=== PATIENT | male | born 1950 | race Caucasian/White ===

== ENCOUNTER → 2021-08-07 13:30 | Outpatient (BNVA) | payer MEDICARE, SELFPAY | PROVIDERS: PCP Nurse Practitioner Family; Visit Provider Urology | DX: N40.0 Benign prostatic hyperplasia without lower urinary tract symptoms (principal); R31.29 Other microscopic hematuria | CPT/HCPCS: 81003 ==

== ENCOUNTER 2024-10-20 16:48 | Emergency (ER) | payer OTHER, SELFPAY ==
[2024-10-20] VITALS (12 sets, daily range): BP systolic 138–189; BP diastolic 62–84; PULSE 64–96; RESP 15–31; TEMP 36.6; O2SAT 95–98; BMI 32.8
--- NOTE | 2024-10-20 17:08 | ECG_ITS ---
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 Measurements Intervals [place] Rate: 66 P: 63 [place]: 183 QRS: 55 QRSD: 85 T: 72 QT: 349 QTc: 368 Interpretive Statements SINUS RHYTHM No previous ECG available for comparison Electronically Signed On 10-22-2024 22:00:13 CASCADE OPERATOR by Jewel Otoole M.D. [id number]
--- NOTE | 2024-10-20 17:36 | ED_ITS ---
HPI - Recheck/Abnormal Lab/Rx 2 General: Chief Complaint: Recheck/Abnormal Lab/Rx Stated Complaint: [facility] sent over for kidney failure Time Seen by Provider: 10/20/24 17:08 History of Present Illness: 74-year-old male with a history of hyper tension, diabetes and hyperlipidemia who presents to the emergency room from the [facility] with concern for acute renal failure and hyperkalemia. He says he has been relatively asymptomatic other than some mild generalized weakness over the last few weeks. No fevers. No dysuria. He does report decreased urine output. No lower extremity swelling except maybe some mild trace tibial edema. No fevers. No cough. No shortness of breath. No chest pain. No abdominal pain. No nausea or vomiting. Related Data Home Medications Medication Instructions Recorded Confirmed atorvastatin 20 mg tablet 20 mg PO DAILY 08/07/21 08/07/21 glipizide 5 mg tablet 5 mg PO DAILY 08/07/21 08/07/21 lisinopril 20 mg tablet 20 mg PO DAILY 08/07/21 08/07/21 metformin 1,000 mg tablet 500 mg PO BID 08/07/21 08/07/21 Allergies Allergy/AdvReac Type Severity Reaction Status Date / Time Penicillins Allergy Unknown Verified 10/20/24 18:39 Review of Systems 2 Narrative: Constitutional symptoms: Negative except as documented in HPI. Skin symptoms: Negative except as documented in HPI. Eye symptoms: Negative except as documented in HPI. ENMT symptoms: Negative except as documented in HPI. Respiratory symptoms: Negative except as documented in HPI. Cardiovascular symptoms: Negative except as documented in HPI. Gastrointestinal symptoms: Negative except as documented in HPI. Genitourinary symptoms: Negative except as documented in HPI. Musculoskeletal symptoms: Negative except as documented in HPI. Neurologic symptoms: Negative except as documented in HPI. Psychiatric symptoms: Negative except as documented in HPI. Endocrine symptoms: Negative except as documented in HPI. PFSH ED 2 PFSH: Medical History BPH (benign prostatic hyperplasia) Microscopic hematuria Family History Mother Healthy adult Father , AT AGE 90 Unknown cause of injury Social History Smoking and tobacco/nicotine status: never used tobacco/nicotine Alcohol intake: never Substance/Drug Use: never Marital status: Current occupational status: employed Physical Exam 2 Narrative: EXAM NARRATIVE: General: Alert, no acute distress. Skin: Warm, dry. Head: Normocephalic, atraumatic. Neck: Supple, trachea midline. Eye: Extraocular movements are intact. Ears, nose, mouth and throat: mucosa moist. Cardiovascular: Regular, Normal peripheral perfusion. Respiratory: Lungs are clear to auscultation, respirations are non-labored, breath sounds are equal, Symmetrical chest wall expansion. Gastrointestinal: Soft, Nontender, Non distended Musculoskeletal: Normal ROM, no deformity. Neurological: Alert and oriented, No focal neurological deficit observed. Psychiatric: Cooperative, appropriate mood & affect. Course 2 Vital Signs: Vital signs: Vital Signs Temperature 97.8 F 10/20/24 16:59 Pulse Rate 64 10/20/24 18:20 Respiratory Rate 21 H 10/20/24 18:20 Blood Pressure 139/64 10/20/24 18:20 Pulse Oximetry 98 10/20/24 18:20 Oxygen Delivery Me thod Room Air 10/20/24 18:20 MDM - Recheck/Abnormal Lab/Rx Medical Decision Making Medical decision making: Differential diagnosis including but not limited to and based on the above HPI, review of systems and physical exam: Report of renal failure so repeating lab work. Also adding a Phos and mag. Urinalysis. Check for hyperkalemia. An EKG to look for EKG changes secondary to hyperkalemia. Orders placed to evaluate differential diagnosis based on the above differential, HPI and physical exam EKG: Time 1716. Rate 66. Normal sinus rhythm, No ST-T changes, no ectopy, normal WA & QRS intervals, This was reviewed and interpreted by myself the ER physician at 1720. Lab Review: Laboratory results were reviewed and interpreted by myself the emergency room physician. Patient has some mild leukocytosis with a white count of 15,000. He has renal failure with a BUN and creatinine of 51 and 2.8. Urinalysis shows greater than 100 whites with some mild hematuria and leukocyte esterase positive. Nitrite negative. I reviewed the patient's medical record. Reexamination: Patient remained stable. No increased work of breathing. No altered mental status. No focal motor deficits. CT of the abdomen pelvis without contrast: Patient has a large calcification in the proximal ureter and pelvis of the left kidney. This kidney appears atrophic and this is likely chronic. He has a 10 mm stone in the proximal right ureter with hydronephrosis. Findings also concerning for infection. See official read below. This was reviewed and interpreted by myself the emergency room physician. I also reviewed the radiology report. Consultation: I spoke with Dr. Benjamín Campbell who is a urologist at [facility]. He agrees with transfer for stent placement and continued antibiotics and fluids. Consultation: I spoke with Dr. Mejia who is a hospitalist at [facility] who accepts the patient to his service. Assessment and plan: Renal failure Urinary tract infection Ureterolithiasis Bilateral obstructive uropathy Mild hyperkalemia -I discussed the patient with the hospitalist on-call who is admitting the patient. - Discussed findings and plan with patient. Answered any questions. - All laboratory values were reviewed and interpreted personally by myself, the ER physician - All imaging was reviewed and interpreted personally by myself, the ER physician. - Evaluation and treatment of this problem were appropriate in the emergency setting Lab Data 10/20/24 17:22 10/20/24 17:22 Radiology Impressions Abdomen/Pelvis CT 10/20/24 18:23 IMPRESSION: 1. Obstructing 0.9 cm calculus in the proximal left ureter with moderate upstream hydroureteronephrosis. 2. Layering coarse calcifications in the right renal pelvis with additional calculi in central calices along with right-sided emphysematous pyelitis. Correlate for recent instrumentation and consider short interval follow-up imaging, particularly if patient develops worsening right-sided flank pain, to evaluate for developing emphysematous pyelonephritis. 3. Fat stranding in the right renal sinus is compatible with inflammation. Superimposed infection not excluded. 4. Mild bilateral perinephric fat stranding is nonspecific. 5. Additional findings as above. COMMENTS: Consistent with the [place] [employer]'s Incidental Findings Committee white paper (J Am Luci Radiol 2017): For any incidental adrenal lesion greater than or equal to 1 cm but less than or equal to 4 cm classified in this report as benign, likely benign, or containing fat (including classification as an adenoma or myelolipoma), no follow-up imaging is recommended per consensus recommendations based on imaging criteria. Further lab evaluation could be pursued if warranted based on clinical findings. Laboratory Results WBC 14.62 10^3/uL (3.29-11.43) H 10/20/24 17:22 RBC 4.52 10^6/uL (3.85-5.65) 10/20/24 17:22 Hgb 12.50 g/dL (11.27-16.99) 10/20/24 17:22 Hct 40.4 % (37-53) 10/20/24 17:22 MCV 89.4 fl (82-101) 10/20/24 17:22 MCH 27.7 pg (27-33) 10/20/24 17:22 MCHC 30.9 g/dL (30-55) 10/20/24 17:22 RDW 15.1 % (12.1-15.1) 10/20/24 17:22 Plt Count 380 10^3/cmm (157-399) 10/20/24 17:22 MPV 9.3 fL (7.4-10.4) 10/20/24 17:22 Neut % (Auto) 60.1 % 10/20/24 17:22 Lymph % (Auto) 29.3 % 10/20/24 17:22 [place] % (Auto) 6.0 % 10/20/24 17:22 Eos % (Auto) 3.8 % 10/20/24 17:22 Baso % (Auto) 0.5 % 10/20/24 17:22 Neut # (Auto) 8.78 10^3/uL (1.8-7.7) H 10/20/24 17:22 Lymph # (Auto) 4.3 10^3/uL (0.8-4.8) 10/20/24 17:22 [place] # (Auto) 0.9 10^3/uL (0.2-0.9) 10/20/24 17:22 Eos # (Auto) 0.6 10^3/uL (0.0-0.8) 10/20/24 17:22 Baso # (Auto) 0.1 10^3/uL (0.0-0.1) 10/20/24 17:22 Nucleated RBC % (auto) 0 % 10/20/24 17:22 Nucleated RBCs # 0.0 /100WBC 10/20/24 17:22 Sodium 137 mmol/L (136-145) 10/20/24 17:22 Potassium 6.0 mmol/L (3.5-5.1) H 10/20/24 17:22 Chloride 107 mmol/L (98-107) 10/20/24 17:22 Carbon Dioxide 19 mmol/L (22-29) L 10/20/24 17:22 Anion Gap 17.0 (5-19) 10/20/24 17:22 BUN 51 mg/dL (8-23) H 10/20/24 17:22 Creatinine 2.8 mg/dL (0.7-1.2) H 10/20/24 17:22 GFR Calculation Not Reportable 10/20/24 17:22 Glucose 124 mg/dL (65-115) H 10/20/24 17:22 Calculated Osmolality 299 mOsm/kg (285-295) H 10/20/24 17:22 Lactic Acid 1.2 mmol/L (0.5-2.2) 10/20/24 17:22 Calcium 9.2 mg/dL (8.5-10.5) 10/20/24 17:22 Phosphorus 4.1 mg/dL (2.5-4.5) 10/20/24 17:22 Magnesium 1.9 mg/dL (1.7-2.3) 10/20/24 17:22 Total Bilirubin 0.2 mg/dL (0.15-1.2) 10/20/24 17:22 AST 15 U/L (0-40) 10/20/24 17:22 ALT 19 U/L (0-41) 10/20/24 17:22 Alkaline Phosphatase 173 U/L (40-130) H 10/20/24 17:22 Troponin T Baseline 23 ng/L (0-15) H 10/20/24 17:22 Troponin T 120 Minute 19.31 ng/L (0-15) H 10/20/24 19:23 Delta Troponin T -3.69 ABS# (0-10) L 10/20/24 19:23 Total Protein 8.1 g/dL (6.6-8.7) 10/20/24 17:22 Albumin 3.7 g/dL (3.5-5.2) 10/20/24 17:22 Globulin 4.4 g/dL (1.3-4.6) 10/20/24 17:22 Urine Color Yellow (Yellow) 10/20/24 17:37 Urine Appearance Turbid (CLEAR) A 10/20/24 17:37 Urine pH 5.0 (5-7) 10/20/24 17:37 Ur Specific [place] 1.016 (1.005-1.030) 10/20/24 17:37 Urine Protein 2+ (Negative) A 10/20/24 17:37 Urine Glucose (UA) Negative (Normal) 10/20/24 17:37 Urine Ketones Negative (Negative) 10/20/24 17:37 Urine Blood 3+ (Negative) A 10/20/24 17:37 Urine Nitrate Negative (Negative) 10/20/24 17:37 Urine Bilirubin Negative (Negative) 10/20/24 17:37 Urine Urobilinogen 0.2 mg/dL (Negative) 10/20/24 17:37 Ur Leukocyte Esterase 3+ (Negative) A 10/20/24 17:37 Urine RBC 21-50 /hpf (0-2) H 10/20/24 17:37 Urine WBC >100 /hpf (0-5) H 10/20/24 17:37 Ur Squamous Epith Cells 0-5 /hpf (0-5) 10/20/24 17:37 Amorphous Sediment Not Reportable 10/20/24 17:37 Urine Bacteria 4+ /hpf (NONE) H 10/20/24 17:37 Hyaline Casts 14.87 /lpf 10/20/24 17:37 All radiology interpretation(s) finalized by discharge Discharge Plan Discharge Patient Disposition: Xfer Short-Term Hosp Clinical Impression: Acute renal failure, Obstructive uropathy, Ureterolithiasis, Urinary tract infection Condition: Stable Referrals: Janis Hernández, SENIOR MEDIA DIRECTOR-C [Primary Care Provider] - Coding Level of Care Code ED Electrician Outside for Adrianna Golden
[2024-10-20 17:41] LABS: Basophils # 0.1 10^3/uL (0.0-0.1); Basophils % 0.5 %; Eosinophils # 0.6 10^3/uL (0.0-0.8); Eosinophils % 3.8 %; Hematocrit 40.4 % (37-53); Lymphocytes # 4.3 10^3/uL (0.8-4.8); Lymphocytes % 29.3 %; Mean Corpuscular HGB Conc 30.9 g/dL (30-55); Mean Corpuscular Hemoglobin 27.7 pg (27-33); Mean Corpuscular Volume 89.4 fl (82-101); Mean Platelet Volume 9.3 fL (7.4-10.4); Monocytes # 0.9 10^3/uL (0.2-0.9); Neutrophils # 8.78 10^3/uL (1.8-7.7); Neutrophils % 60.1 %; Nucleated Red Blood Cells % 0 %; Platelet Count 380 10^3/cmm (157-399); Red Blood Count 4.52 10^6/uL (3.85-5.65); Red Cell Distribution Width 15.1 % (12.1-15.1); White Blood Count 14.62 10^3/uL (3.29-11.43)
[2024-10-20 17:53] LABS: Bilirubin Urine Negative (Negative); Blood Urine 3+ (Negative); Glucose Urine UA Negative (Normal); Ketones Urine Negative (Negative); Leukocyte Esterase Urine 3+ (Negative); Nitrate Urine Negative (Negative); Protein Urine 2+ (Negative); Specific Gravity, Urine 1.016 (1.005-1.030); Urine Appearance Turbid (CLEAR); Urine Color Yellow (Yellow); Urobilinogen Urine 0.2 mg/dL (Negative)
[2024-10-20 17:58] LABS: Bacteria Urine 4+ /hpf; Hyaline Casts Urine 14.87 /lpf; RBC Urine 21-50 /hpf (0-2); Squamous Epithelial Cell Urine 0-5 /hpf (0-5); WBC Urine >100 /hpf (0-5)
[2024-10-20 18:16] LABS: Troponin(5th) Baseline 23 ng/L (0-15)
[2024-10-20 18:18] LABS: Alanine Aminotransferase 19 U/L (0-41); Albumin Level 3.7 g/dL (3.5-5.2); Alkaline Phosphatase 173 U/L (40-130); Aspartate Amino Transferase 15 U/L (0-40); Blood Urea Nitrogen 51 mg/dL (8-23); Calcium 9.2 mg/dL (8.5-10.5); Carbon Dioxide 19 mmol/L (22-29); Chloride 107 mmol/L (98-107); Creatinine Clr Calc Pharmacy 27.9417; Globulin 4.4 g/dL (1.3-4.6); Glucose 124 mg/dL (65-115); Magnesium 1.9 mg/dL (1.7-2.3); Osmolality Calculated 299 mOsm/kg (285-295); Phosphorus 4.1 mg/dL (2.5-4.5); Sodium 137 mmol/L (136-145); Total Bilirubin 0.2 mg/dL (0.15-1.2); Total Protein 8.1 g/dL (6.6-8.7)
[2024-10-20 18:19] LABS: Lactic Sepsis W/Reflex 1.2 mmol/L (0.5-2.2)
--- NOTE | 2024-10-20 18:23 | CTR_ITS ---
PROCEDURE INFORMATION: Exam: CT Abdomen And Pelvis Without Contrast Exam date and time: 10/20/2024 7:56 PM Age: 74 years old Clinical indication: Abdominal pain; Additional info: Flank pain TECHNIQUE: Imaging protocol: Computed tomography of the abdomen and pelvis without contrast. Radiation optimization: All CT scans at this facility use at least one of these dose optimization techniques: automated exposure control; mA and/or kV adjustment per patient size (includes targeted exams where dose is matched to clinical indication); or iterative reconstruction. COMPARISON: US renal BI with PV bladder 05/21/2021 8:51 AM RADIATION DOSE METRICS: Total DLP (mGy-cm): 990.97 FINDINGS: Lungs: Bandlike consolidation medially in the right lower lobe. Liver: Normal. No mass. Gallbladder and biliary ducts: Normal. No calcified stones. No ductal dilation. Pancreas: 6 mm cystic focus in the pancreatic head on series 4, image 23. Spleen: Normal. No splenomegaly. Adrenal glands: 1.6 cm fat density lesion in the right adrenal gland compatible with adrenal myelolipoma. Kidneys and ureters: Multiple calcifications in central right renal calices measuring up to 1.4 cm. Coarse, layering calcification within the right renal pelvis along with several air locules in the right renal collecting system/pelvis and proximal ureter. Ill-defined right renal sinus fat stranding. Mixed. Several calculi are seen in the left kidney measuring up to 0.9 cm. There is a 0.9 cm obstructing calculus in the proximal left ureter just beyond the ureteropelvic junction with moderate upstream hydroureteronephrosis. Bilateral perinephric fat stranding is nonspecific. Mixed Stomach and bowel: Colonic diverticulosis without evidence of acute diverticulitis. Small to moderate scattered colonic stool. No evidence of bowel obstruction. The stomach is moderately distended with fluid and air. Appendix: No evidence of appendicitis. Intraperitoneal space: Unremarkable. No free air. No significant fluid collection. Vasculature: Mild atherosclerotic aortic calcifications. No aortic aneurysm. Lymph nodes: Unremarkable. No enlarged lymph nodes. Urinary bladder: Air within the urinary bladder may be from recent instrumentation. Reproductive: The prostate is moderately enlarged. Symmetric seminal vesicles. Bones/joints: Multilevel degenerative changes of the visualized spine. No acute or aggressive osseous lesion. Soft tissues: Bilateral fat containing inguinal hernias. CT/CT abdomen pelvis wo con [id number] IMPRESSION: 1. Obstructing 0.9 cm calculus in the proximal left ureter with moderate upstream hydroureteronephrosis. 2. Layering coarse calcifications in the right renal pelvis with additional calculi in central calices along with right-sided emphysematous pyelitis. Correlate for recent instrumentation and consider short interval follow-up imaging, particularly if patient develops worsening right-sided flank pain, to evaluate for developing emphysematous pyelonephritis. 3. Fat stranding in the right renal sinus is compatible with inflammation. Superimposed infection not excluded. 4. Mild bilateral perinephric fat stranding is nonspecific. 5. Additional findings as above. COMMENTS: Consistent with the [place] [employer]'s Incidental Findings Committee white paper (J Am Luci Radiol 2017): For any incidental adrenal lesion greater than or equal to 1 cm but less than or equal to 4 cm classified in this report as benign, likely benign, or containing fat (including classification as an adenoma or myelolipoma), no follow-up imaging is recommended per consensus recommendations based on imaging criteria. Further lab evaluation could be pursued if warranted based on clinical findings.
[2024-10-20 18:26] LABS: Add Urine Culture? Yes
[2024-10-20] MEDS: sodium chloride 0.9% 1,000 ML 999 ML IV (18:37)
[2024-10-20] MEDS: cefepime 2,000 mg SDV 2000 MG IVP (18:40)
[2024-10-20 19:58] LABS: Troponin 5 2HR 19.31 ng/L (0-15)
[2024-10-20 19:59] LABS: Troponin 5 2HR Delta -3.69 ABS# (0-10)
--- NOTE | 2024-10-20 21:56 | ECG_ITS ---
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 Measurements Intervals [place] Rate: 72 P: 73 PA: 181 QRS: 44 QRSD: 90 T: 63 QT: 341 QTc: 374 Interpretive Statements SINUS RHYTHM Compared to ECG 10/20/2024 17:16:47 No significant changes Electronically Signed On 10-22-2024 22:14:32 ALGEBRA TUTOR by Jewel Otoole M.D. [id number]
[2024-10-20 23:28] LABS: Troponin 5 6HR 19.36 ng/L (0-15)
[2024-10-20 23:29] LABS: Troponin 5 6HR Delta -3.64 ng/L (0-12)
== END 2024-10-20 23:51 | disposition short-term general hospital (02) ==
PROVIDERS: Emergency Provider Emergency Medicine; PCP Nurse Practitioner Family
DX: N17.9 Acute kidney failure, unspecified (principal); E11.9 Type 2 diabetes mellitus without complications; I10 Essential (primary) hypertension; E78.5 Hyperlipidemia, unspecified; N13.9 Obstructive and reflux uropathy, unspecified; N20.1 Calculus of ureter; N39.0 Urinary tract infection, site not specified
CPT/HCPCS: 36415; 74176; 80053; 81001; 83605; 83735; 84100; 84484; 85025; 87077; 87086; 87186; 93005; 96374; 99285; J0692; J7030

== ENCOUNTER 2025-01-12 12:48 | Outpatient (CLI) | payer MEDICARE, SELFPAY ==
[2025-01-12 13:04] LABS: Basophils # 0.1 10^3/uL (0.0-0.1); Basophils % 0.8 %; Eosinophils % 8.7 %; Hematocrit 32.8 % (37-53); Lymphocytes # 4.4 10^3/uL (0.8-4.8); Lymphocytes % 38.8 %; Mean Corpuscular Hemoglobin 27.9 pg (27-33); Mean Corpuscular Volume 87.2 fl (82-101); Mean Platelet Volume 9.8 fL (7.4-10.4); Monocytes # 0.7 10^3/uL (0.2-0.9); Monocytes % 5.8 %; Neutrophils # 5.12 10^3/uL (1.8-7.7); Neutrophils % 45.5 %; Nucleated Red Blood Cells % 0 %; Platelet Count 370 10^3/cmm (157-399); Red Blood Count 3.76 10^6/uL (3.85-5.65); Red Cell Distribution Width 15.3 % (12.1-15.1); White Blood Count 11.25 10^3/uL (3.29-11.43)
[2025-01-12 13:34] LABS: Alanine Aminotransferase 35 U/L (0-41); Albumin Level 3.4 g/dL (3.5-5.2); Alkaline Phosphatase 129 U/L (40-130); Aspartate Amino Transferase 31 U/L (0-40); Blood Urea Nitrogen 35 mg/dL (8-23); Calcium 9.1 mg/dL (8.5-10.5); Carbon Dioxide 24 mmol/L (22-29); Chloride 108 mmol/L (98-107); Globulin 3.6 g/dL (1.3-4.6); Glucose 79 mg/dL (65-115); Osmolality Calculated 301 mOsm/kg (285-295); Sodium 142 mmol/L (136-145); Total Bilirubin 0.2 mg/dL (0.15-1.2)
== END 2025-01-12 12:49 | disposition home or self-care (01) ==
PROVIDERS: PCP Nurse Practitioner Family; Visit Provider Urology
DX: Z79.2 Long term (current) use of antibiotics (principal)
CPT/HCPCS: 80053; 85025

== ENCOUNTER 2025-03-09 15:40 | Emergency (ER) | payer OTHER, MEDICARE, SELFPAY ==
[2025-03-09] VITALS (7 sets, daily range): BP systolic 137–154; BP diastolic 71–83; PULSE 60–90; RESP 16–18; TEMP 36.5; O2SAT 97–99; BMI 30.9
--- NOTE | 2025-03-09 15:50 | ECG_ITS ---
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 Measurements Intervals [place] Rate: 71 P: 40 [place]: 176 QRS: 38 QRSD: 80 T: 60 QT: 357 QTc: 390 Interpretive Statements SINUS RHYTHM Compared to ECG 10/20/2024 21:56:44 No significant changes Electronically Signed On 03-14-2025 10:15:29 CDT by Jewel Otoole M.D. [email or web address] [id number]
--- NOTE | 2025-03-09 16:26 | W.ED.RECABL ---
Documented by User: Warren Flood DO 03/10/25 13:47 HPI - Recheck/Abnormal Lab/Rx General: Chief Complaint: Recheck/Abnormal Lab/Rx Stated Complaint: abn labs Time Seen by Provider: 03/09/25 16:12 History of Present Illness: 74-year-old male presents to the emergency room with complaints of elevated creatinine potassium on lab work that was drawn 2 days ago. Patient has stents in place and is about to have lithotripsy he was having preoperative labs evidently there were abnormal he was directed here by his stopper maker helper. He denies having any symptoms this time no fever sweats chills no muscle twitching or cramping no palpitations. Related Data Home Medications ?Medication ?Instructions ?Recorded ?Confirmed atorvastatin 20 mg tablet 20 mg PO DAILY 08/07/21 03/09/25 lisinopril 20 mg tablet 20 mg PO DAILY 08/07/21 03/09/25 ciprofloxacin HCl 500 mg tablet 500 mg PO BID 03/09/25 03/09/25 folic acid 1 mg tablet 1 mg PO DAILY 03/09/25 03/09/25 glipizide 10 mg tablet, extended 10 mg PO DAILY 03/09/25 03/09/25 release 24 hr metformin 500 mg tablet 500 mg PO BID 03/09/25 03/09/25 nitrofurantoin macrocrystal 100 mg 100 mg PO DAILY 03/09/25 03/09/25 capsule Allergies Allergy/AdvReac Type Severity Reaction Status Date / Time Penicillins Allergy Unknown Verified 03/09/25 15:57 Review of Systems Const: Denies: fever(s) or chills Card: Denies: chest pain Resp: Denies: dyspnea GI: Denies: abdominal pain : Denies: dysuria, urinary frequency or urinary urgency Musc: Denies: neck pain or back pain Skin/Breast: Denies: rash PFSH ED PFSH: Medical History Microscopic hematuria BPH (benign prostatic hyperplasia) Family History Mother Healthy adult Father , AT AGE 90 Unknown cause of injury Social History Smoking and tobacco/nicotine status: never used tobacco/nicotine Alcohol intake: never Substance/Drug Use: never Marital status: Current occupational status: employed Physical Exam Const: GENERAL APPEARANCE: cooperative ORIENTATION/CONSCIOUSNESS: Yes awake, Yes oriented to person, Yes oriented to place and Yes oriented to time HENMT: COMMON NORMALS: normocephalic, atraumatic and hearing grossly normal bilaterally HEAD & SCALP: normocephalic and atraumatic Resp: COMMON NORMALS: normal respiratory effort, No retractions, No use of accessory muscles and clear to auscultation bilaterally AUSCULTATION: clear to auscultation bilaterally Cardio: COMMON NORMALS: regular rate, regular rhythm and No murmurs present (Cardio) RATE: regular rate RHYTHM: regular rhythm GI: COMMON NORMALS: Soft to palpation and No hepatosplenomegaly present AUSCULTATION: Yes normoactive bowel sounds PALPATION: Yes Soft to palpation, No Tenderness to palpation present (GI), No Guarding due to palpation present (GI) and Yes No hepatosplenomegaly present Extremity: COMMON NORMALS: normal to inspection, capillary refill normal, no clubbing, cyanosis or edema, no calf tenderness and no pedal edema Neuro: SENSORIUM/ORIENTATION: Yes oriented to person, Yes oriented to place and Yes oriented to time Skin: COMMON NORMALS: no rashes or lesions noted GENERAL SKIN EXAM: no rashes or lesions noted Course Vital Signs: Vital signs: Vital Signs Temperature 97.7 F 03/09/25 15:42 Pulse Rate 72 03/09/25 21:06 Respiratory Rate 16 03/09/25 21:06 Blood Pressure 153/80 03/09/25 21:06 Pulse Oximetry 98 03/09/25 21:06 Oxygen Delivery [facility] Room Air 03/09/25 20:00 MDM - Recheck/Abnormal Lab/Rx Medical Decision Making Patient presents emergency room at the behest of his stopper maker helper for abnormal potassium and creatinine levels ordered on preop. He is not having any flank pain or discomfort. He does have a mild UTI. Hyperkalemia treatments initiated. CT renal scan pending for possible admission here. Discussed with Dr. Byers. Care signed out to Dr. Byers at change of shift. See final notes for diagnosis and disposition. Patient care transitioned to or at shift change awaiting CT scan. There was planned admission to the hospitalist service but CT scan shows possible migration of the left ureteral stent. Consultation: I spoke with Dr. Campbell who is the patient's urologist down at [place]. He recommends transfer to the hospitalist service for replacement of stents tomorrow. Planned lithotripsy on Friday. Patient is on antibiotics and follows with an ID doctor. He was given meropenem and Rocephin here in the emergency room. He has been given fluids as well. He is having no pain. No altered mental status. Vitals are good. Consultation: I spoke with Dr. Conde who is on-call for the hospitalist service at [place] and the patient will be transferred there. Assessment and plan: Acute on chronic renal insufficiency Ureteral stent malfunction Urinary tract infection -I discussed the patient with the accepting physician on-call. - Discussed findings and plan with patient. Answered any questions. - All laboratory values were reviewed and interpreted personally by myself, the ER physician - All imaging was reviewed and interpreted personally by myself, the ER physician. - Evaluation and treatment of this problem were appropriate in the emergency setting Medical Records I reviewed the patient's medical records. Lab Data I reviewed the patient's lab results. 03/09/25 16:24 03/09/25 16:24 Radiology Impressions Abdomen/Pelvis CT 03/09/25 17:55 IMPRESSION: 1. 1.9 cm low-density lesion in the posterior tail of the pancreas appears to have increased in size compared to prior study where it measured less than 1 cm. Recommend further evaluation with pancreatic protocol CT or MR. EUS/FNA is likely appropriate given apparent rapid rate of growth. 2. Apparent increased stone burden in the right kidney with mild increased right upper pole hydronephrosis. Right ureteral stent terminates in the right renal pelvis. 3. Left ureteral stent terminates in the proximal left ureter at the level of the 9 mm calcification. There is [id number] left proximal hydroureteronephrosis. 4. Other nonemergent findings above. Laboratory Results WBC 12.59 10^3/uL (3.29-11.43) H 03/09/25 16:24 RBC 3.90 10^6/uL (3.85-5.65) 03/09/25 16:24 Hgb 10.70 g/dL (11.27-16.99) L 03/09/25 16:24 Hct 34.9 % (37-53) L 03/09/25 16:24 MCV 89.5 fl (82-101) 03/09/25 16:24 MCH 27.4 pg (27-33) 03/09/25 16:24 MCHC 30.7 g/dL (30-55) 03/09/25 16:24 RDW 15.5 % (12.1-15.1) H 03/09/25 16:24 Plt Count 374 10^3/cmm (157-399) 03/09/25 16:24 MPV 9.2 fL (7.4-10.4) 03/09/25 16:24 Neut % (Auto) 58.8 % 03/09/25 16:24 Lymph % (Auto) 31.0 % 03/09/25 16:24 Osborne % (Auto) 5.2 % 03/09/25 16:24 Eos % (Auto) 4.0 % 03/09/25 16:24 Baso % (Auto) 0.7 % 03/09/25 16:24 Neut # (Auto) 7.40 10^3/uL (1.8-7.7) 03/09/25 16:24 Lymph # (Auto) 3.9 10^3/uL (0.8-4.8) 03/09/25 16:24 Osborne # (Auto) 0.7 10^3/uL (0.2-0.9) 03/09/25 16:24 Eos # (Auto) 0.5 10^3/uL (0.0-0.8) 03/09/25 16:24 Baso # (Auto) 0.1 10^3/uL (0.0-0.1) 03/09/25 16:24 Nucleated RBC % (auto) 0 % 03/09/25 16:24 Nucleated RBCs # 0.0 /100WBC 03/09/25 16:24 Sodium 136 mmol/L (136-145) 03/09/25 16:24 Potassium 5.8 mmol/L (3.5-5.1) H 03/09/25 16:24 Chloride 109 mmol/L (98-107) H 03/09/25 16:24 Carbon Dioxide 13 mmol/L (22-29) L 03/09/25 16:24 Anion Gap 19.8 (5-19) H 03/09/25 16:24 BUN 71 mg/dL (8-23) H 03/09/25 16:24 Creatinine 2.3 mg/dL (0.7-1.2) H 03/09/25 16:24 GFR Calculation Not Reportable 03/09/25 16:24 Glucose 104 mg/dL (65-115) 03/09/25 16:24 Calculated Osmolality 303 mOsm/kg (285-295) H 03/09/25 16:24 Calcium 8.4 mg/dL (8.5-10.5) L 03/09/25 16:24 Magnesium 1.5 mg/dL (1.7-2.3) L 03/09/25 16:24 Total Bilirubin 0.2 mg/dL (0.15-1.2) 03/09/25 16:24 AST 47 U/L (0-40) H 03/09/25 16:24 ALT 54 U/L (0-41) H 03/09/25 16:24 Alkaline Phosphatase 107 U/L (40-130) 03/09/25 16:24 Total Protein 7.8 g/dL (6.6-8.7) 03/09/25 16:24 Albumin 3.4 g/dL (3.5-5.2) L 03/09/25 16:24 Globulin 4.4 g/dL (1.3-4.6) 03/09/25 16:24 Urine Color Yellow (Yellow) 03/09/25 16:51 Urine Appearance Turbid (CLEAR) A 03/09/25 16:51 Urine pH 5.0 (5-7) 03/09/25 16:51 Ur Specific [place] 1.013 (1.005-1.030) 03/09/25 16:51 Urine Protein 2+ (Negative) A 03/09/25 16:51 Urine Glucose (UA) Negative (Normal) 03/09/25 16:51 Urine Ketones Negative (Negative) 03/09/25 16:51 Urine Blood 3+ (Negative) A 03/09/25 16:51 Urine Nitrate Negative (Negative) 03/09/25 16:51 Urine Bilirubin Negative (Negative) 03/09/25 16:51 Urine Urobilinogen 0.2 mg/dL (Negative) 03/09/25 16:51 Ur Leukocyte Esterase 2+ (Negative) A 03/09/25 16:51 Urine RBC 6-10 /hpf (0-2) 03/09/25 16:51 Urine WBC 21-50 /hpf (0-5) H 03/09/25 16:51 Ur Squamous Epith Cells 6-10 /hpf (0-5) 03/09/25 16:51 Amorphous Sediment Not Reportable 03/09/25 16:51 Urine Bacteria None seen /hpf (NONE) 03/09/25 16:51 Hyaline Casts 103.00 /lpf 03/09/25 16:51 Discharge Plan Discharge Patient Disposition: Xfer Short-Term Hosp Clinical Impression: Ureterolithiasis, Hydronephrosis, Migration of ureteral stent, Acute on chronic renal insufficiency, Urinary tract infection Condition: Stable Referrals: Janis Hernández FNP-C [Primary Care Provider, Nurse Practitioner] Print Language: Tajik Coding Level of Care Code ED Arterial Embalmer for Chg Fwd Documented by User: Cheryl Byers MD 03/09/25 20:12 HPI - Recheck/Abnormal Lab/Rx General: Chief Complaint: Recheck/Abnormal Lab/Rx Stated Complaint: abn labs Time Seen by Provider: 03/09/25 16:12 Related Data Home Medications ?Medication ?Instructions ?Recorded ?Confirmed atorvastatin 20 mg tablet 20 mg PO DAILY 08/07/21 03/09/25 lisinopril 20 mg tablet 20 mg PO DAILY 08/07/21 03/09/25 ciprofloxacin HCl 500 mg tablet 500 mg PO BID 03/09/25 03/09/25 folic acid 1 mg tablet 1 mg PO DAILY 03/09/25 03/09/25 glipizide 10 mg tablet, extended 10 mg PO DAILY 03/09/25 03/09/25 release 24 hr metformin 500 mg tablet 500 mg PO BID 03/09/25 03/09/25 nitrofurantoin macrocrystal 100 mg 100 mg PO DAILY 03/09/25 03/09/25 capsule Allergies Allergy/AdvReac Type Severity Reaction Status Date / Time Penicillins Allergy Unknown Verified 03/09/25 15:57 PFSH ED PFS: Medical History Microscopic hematuria BPH (benign prostatic hyperplasia) Family History Mother Healthy adult Father , AT AGE 90 Unknown cause of injury Social History Smoking and tobacco/nicotine status: never used tobacco/nicotine Alcohol intake: never Substance/Drug Use: never Marital status: Current occupational status: employed Course Vital Signs: Vital signs: Vital Signs Temperature 97.7 F 03/09/25 15:42 Pulse Rate 72 03/09/25 21:06 Respiratory Rate 16 03/09/25 21:06 Blood Pressure 153/80 03/09/25 21:06 Pulse Oximetry 98 03/09/25 21:06 Oxygen Delivery Ri [facility]od Room Air 03/09/25 20:00 MDM - Recheck/Abnormal Lab/Rx Medical Decision Making Patient care transitioned to or at shift change awaiting CT scan. There was planned admission to the hospitalist service but CT scan shows possible migration of the left ureteral stent. Consultation: I spoke with Dr. Campbell who is the patient's urologist down at [place]. He recommends transfer to the hospitalist service for replacement of stents tomorrow. Planned lithotripsy on Friday. Patient is on antibiotics and follows with an ID doctor. He was given meropenem and Rocephin here in the emergency room. He has been given fluids as well. He is having no pain. No altered mental status. Vitals are good. Consultation: I spoke with Dr. Conde who is on-call for the hospitalist service at [place] and the patient will be transferred there. Assessment and plan: Acute on chronic renal insufficiency Ureteral stent malfunction Urinary tract infection -I discussed the patient with the accepting physician on-call. - Discussed findings and plan with patient. Answered any questions. - All laboratory values were reviewed and interpreted personally by myself, the ER physician - All imaging was reviewed and interpreted personally by myself, the ER physician. - Evaluation and treatment of this problem were appropriate in the emergency setting Lab Data 03/09/25 16:24 04/30/25 16:24 Radiology Impressions Abdomen/Pelvis CT 03/09/25 17:55 IMPRESSION: 1. 1.9 cm low-density lesion in the posterior tail of the pancreas appears to have increased in size compared to prior study where it measured less than 1 cm. Recommend further evaluation with pancreatic protocol CT or MR. EUS/FNA is likely appropriate given apparent rapid rate of growth. 2. Apparent increased stone burden in the right kidney with mild increased right upper pole hydronephrosis. Right ureteral stent terminates in the right renal pelvis. 3. Left ureteral stent terminates in the proximal left ureter at the level of the 9 mm calcification. There is [id number] left proximal hydroureteronephrosis. 4. Other nonemergent findings above. Laboratory Results WBC 12.59 10^3/uL (3.29-11.43) H 03/09/25 16:24 RBC 3.90 10^6/uL (3.85-5.65) 03/09/25 16:24 Hgb 10.70 g/dL (11.27-16.99) L 03/09/25 16:24 Hct 34.9 % (37-53) L 03/09/25 16:24 MCV 89.5 fl (82-101) 03/09/25 16:24 MCH 27.4 pg (27-33) 03/09/25 16:24 MCHC 30.7 g/dL (30-55) 03/09/25 16:24 RDW 15.5 % (12.1-15.1) H 03/09/25 16:24 Plt Count 374 10^3/cmm (157-399) 03/09/25 16:24 MPV 9.2 fL (7.4-10.4) 03/09/25 16:24 Neut % (Auto) 58.8 % 03/09/25 16:24 Lymph % (Auto) 31.0 % 03/09/25 16:24 Osborne % (Auto) 5.2 % 03/09/25 16:24 Eos % (Auto) 4.0 % 03/09/25 16:24 Baso % (Auto) 0.7 % 03/09/25 16:24 Neut # (Auto) 7.40 10^3/uL (1.8-7.7) 03/09/25 16:24 Lymph # (Auto) 3.9 10^3/uL (0.8-4.8) 03/09/25 16:24 [place] # (Auto) 0.7 10^3/uL (0.2-0.9) 03/09/25 16:24 Eos # (Auto) 0.5 10^3/uL (0.0-0.8) 03/09/25 16:24 Baso # (Auto) 0.1 10^3/uL (0.0-0.1) 03/09/25 16:24 Nucleated RBC % (auto) 0 % 03/09/25 16:24 Nucleated RBCs # 0.0 /100WBC 03/09/25 16:24 Sodium 136 mmol/L (136-145) 03/09/25 16:24 Potassium 5.8 mmol/L (3.5-5.1) H 03/09/25 16:24 Chloride 109 mmol/L (98-107) H 03/09/25 16:24 Carbon Dioxide 13 mmol/L (22-29) L 03/09/25 16:24 Anion Gap 19.8 (5-19) H 03/09/25 16:24 BUN 71 mg/dL (8-23) H 03/09/25 16:24 Creatinine 2.3 mg/dL (0.7-1.2) H 03/09/25 16:24 GFR Calculation Not Reportable 03/09/25 16:24 Glucose 104 mg/dL (65-115) 03/09/25 16:24 Calculated Osmolality 303 mOsm/kg (285-295) H 03/09/25 16:24 Calcium 8.4 mg/dL (8.5-10.5) L 03/09/25 16:24 Magnesium 1.5 mg/dL (1.7-2.3) L 03/09/25 16:24 Total Bilirubin 0.2 mg/dL (0.15-1.2) 03/09/25 16:24 AST 47 U/L (0-40) H 03/09/25 16:24 ALT 54 U/L (0-41) H 03/09/25 16:24 Alkaline Phosphatase 107 U/L (40-130) 03/09/25 16:24 Total Protein 7.8 g/dL (6.6-8.7) 03/09/25 16:24 Albumin 3.4 g/dL (3.5-5.2) L 03/09/25 16:24 Globulin 4.4 g/dL (1.3-4.6) 03/09/25 16:24 Urine Color Yellow (Yellow) 03/09/25 16:51 Urine Appearance Turbid (CLEAR) A 03/09/25 16:51 Urine pH 5.0 (5-7) 03/09/25 16:51 Ur Specific [place] 1.013 (1.005-1.030) 03/09/25 16:51 Urine Protein 2+ (Negative) A 03/09/25 16:51 Urine Glucose (UA) Negative (Normal) 03/09/25 16:51 Urine Ketones Negative (Negative) 03/09/25 16:51 Urine Blood 3+ (Negative) A 03/09/25 16:51 Urine Nitrate Negative (Negative) 03/09/25 16:51 Urine Bilirubin Negative (Negative) 03/09/25 16:51 Urine Urobilinogen 0.2 mg/dL (Negative) 03/09/25 16:51 Ur Leukocyte Esterase 2+ (Negative) A 03/09/25 16:51 Urine RBC 6-10 /hpf (0-2) 03/09/25 16:51 Urine WBC 21-50 /hpf (0-5) H 03/09/25 16:51 Ur Squamous Epith Cells 6-10 /hpf (0-5) 03/09/25 16:51 Amorphous Sediment Not Reportable 03/09/25 16:51 Urine Bacteria None seen /hpf (NONE) 03/09/25 16:51 Hyaline Casts 103.00 /lpf 03/09/25 16:51 All radiology interpretation(s) finalized by discharge Discharge Plan Discharge Patient Disposition: Xfer Short-Term Hosp Clinical Impression: Ureterolithiasis, Hydronephrosis, Migration of ureteral stent, Acute on chronic renal insufficiency, Urinary tract infection Condition: Stable Referrals: Janis Hernández FNP-C [Primary Care Provider, Nurse Practitioner] Print Language: Tajik Coding Level of Care Code ED Arterial Embalmer for Adrainna Golden
[2025-03-09 16:32] LABS: Basophils # 0.1 10^3/uL (0.0-0.1); Basophils % 0.7 %; Eosinophils # 0.5 10^3/uL (0.0-0.8); Hematocrit 34.9 % (37-53); Lymphocytes # 3.9 10^3/uL (0.8-4.8); Mean Corpuscular HGB Conc 30.7 g/dL (30-55); Mean Corpuscular Hemoglobin 27.4 pg (27-33); Mean Corpuscular Volume 89.5 fl (82-101); Mean Platelet Volume 9.2 fL (7.4-10.4); Monocytes # 0.7 10^3/uL (0.2-0.9); Monocytes % 5.2 %; Neutrophils % 58.8 %; Nucleated Red Blood Cells % 0 %; Platelet Count 374 10^3/cmm (157-399); Red Cell Distribution Width 15.5 % (12.1-15.1); White Blood Count 12.59 10^3/uL (3.29-11.43)
[2025-03-09 16:53] LABS: Alanine Aminotransferase 54 U/L (0-41); Albumin Level 3.4 g/dL (3.5-5.2); Alkaline Phosphatase 107 U/L (40-130); Anion Gap 19.8 (5-19); Aspartate Amino Transferase 47 U/L (0-40); Blood Urea Nitrogen 71 mg/dL (8-23); Calcium 8.4 mg/dL (8.5-10.5); Carbon Dioxide 13 mmol/L (22-29); Chloride 109 mmol/L (98-107); Creatinine Clr Calc Pharmacy 33.0759; Globulin 4.4 g/dL (1.3-4.6); Glucose 104 mg/dL (65-115); Osmolality Calculated 303 mOsm/kg (285-295); Potassium 5.8 mmol/L (3.5-5.1); Sodium 136 mmol/L (136-145); Total Bilirubin 0.2 mg/dL (0.15-1.2); Total Protein 7.8 g/dL (6.6-8.7)
[2025-03-09 17:11] LABS: Bilirubin Urine Negative (Negative); Blood Urine 3+ (Negative); Glucose Urine UA Negative (Normal); Ketones Urine Negative (Negative); Leukocyte Esterase Urine 2+ (Negative); Nitrate Urine Negative (Negative); Protein Urine 2+ (Negative); Specific Gravity, Urine 1.013 (1.005-1.030); Urine Appearance Turbid (CLEAR); Urine Color Yellow (Yellow); Urobilinogen Urine 0.2 mg/dL (Negative)
[2025-03-09 17:16] LABS: Add Urine Microscopic? YES; Bacteria Urine None Seen /hpf; WBC Urine 21-50 /hpf (0-5)
[2025-03-09 17:38] LABS: UA Slide Review UA Slide Review Perf
[2025-03-09] MEDS: albuterol 2.5 MG/0.5 ML NEB 10 MG INHALATION (17:38)
[2025-03-09 17:39] LABS: Add Urine Culture? Yes
[2025-03-09] MEDS: sodium polystyrene sulfonate 15 gm/60 mL Btl PO (17:44)
[2025-03-09] MEDS: sodium chloride 0.9% 1,000 ML 999 ML IV (17:44)
[2025-03-09] MEDS: calcium chloride 10% Syr 10 mL 1 GM IVP (17:45)
[2025-03-09 17:46] LABS: Magnesium 1.5 mg/dL (1.7-2.3)
--- NOTE | 2025-03-09 17:55 | CTR_ITS ---
PROCEDURE INFORMATION: Exam: CT Abdomen And Pelvis Without Contrast Exam date and time: 03/09/2025 6:21 PM Age: 74 years old Clinical indication: Pain; Other: Bilat flank; Additional info: Flank pain TECHNIQUE: Imaging protocol: Computed tomography of the abdomen and pelvis without contrast. Radiation optimization: All CT scans at this facility use at least one of these dose optimization techniques: automated exposure control; mA and/or kV adjustment per patient size (includes targeted exams where dose is matched to clinical indication); or iterative reconstruction. COMPARISON: CT abdomen pelvis wo con [id number] 10/20/2024 7:56 PM RADIATION DOSE METRICS: Total DLP (mGy-cm): 1018.63 FINDINGS: Lungs: Stable medial right basilar scarring or atelectasis. Heart: Heart size is within normal limits. There is no pericardial effusion or pericardial thickening. Liver: The liver is normal. No hepatic masses are identified. Gallbladder and biliary ducts: The gallbladder is contracted. There is no ductal dilatation. Pancreas: 1.9 cm low-density lesion in the posterior tail of the pancreas appears to have increased in size compared to prior study where it measured less than 1 cm. Spleen: The spleen is normal. Adrenal glands: Stable 2 cm right adrenal myelolipoma. The adrenal glands are otherwise normal. Kidneys and ureters: Apparent mild increased stone burden in the lower pole of the right kidney which has the appearance of the staghorn calculus. A right ureteral stent is in place. There is mild hydronephrosis, likely mildly worsened in the upper pole of the right kidney. 9 mm proximal left ureteral calcification which is at the proximal level of the ureteral stent which terminates in the proximal ureter. There is associated moderate left hydroureteronephrosis. Gqcq-iw-[id number] symmetric bilateral perinephric changes, similar compared to prior study. Stomach and bowel: Moderate colonic diverticulosis without diverticulitis. There is no large or small bowel obstruction. There is no evidence of bowel wall thickening. Appendix: A normal appendix is identified. Intraperitoneal space: No inflammatory changes are identified. There is no free fluid or fluid collection seen. There is no pneumoperitoneum. Vasculature: Atherosclerotic calcifications of the aorta are present. No aneurysm is identified. Lymph nodes: No enlarged lymph nodes are identified. Urinary bladder: Ureteral stents noted in the urinary bladder which is otherwise unremarkable. Reproductive: Moderate prostatomegaly. Bones/joints: No acute osseous abnormalities are seen. Soft tissues: Small right inguinal hernia containing only fat. Moderate left inguinal hernia containing only fat. Tiny periumbilical hernia containing only fat. CT/CT kidney stone [id number] IMPRESSION: 1. 1.9 cm low-density lesion in the posterior tail of the pancreas appears to have increased in size compared to prior study where it measured less than 1 cm. Recommend further evaluation with pancreatic protocol CT or MR. EUS/FNA is likely appropriate given apparent rapid rate of growth. 2. Apparent increased stone burden in the right kidney with mild increased right upper pole hydronephrosis. Right ureteral stent terminates in the right renal pelvis. 3. Left ureteral stent terminates in the proximal left ureter at the level of the 9 mm calcification. There is [id number] left proximal hydroureteronephrosis. 4. Other nonemergent findings above.
[2025-03-09] MEDS: SODIUM BICARBONATE IV (18:13)
[2025-03-09] MEDS: SODIUM CHLORIDE 0.9% IV (18:13)
[2025-03-09] MEDS: meropenem 1,000 mg SDV 1000 MG IVP (18:50)
[2025-03-09] MEDS: LORazepam 1 MG/0.5 ML injection 0.5 MG IVP (20:53)
[2025-03-09] MEDS: ondansetron 2 mg/ML SDV 2 mL 4 MG IVP (20:55)
[2025-03-09] MEDS: meclizine 25 mg tablet PO (20:57)
== END 2025-03-09 21:10 | disposition short-term general hospital (02) ==
PROVIDERS: Family Medicine; Emergency Provider Emergency Medicine; PCP Nurse Practitioner Family
DX: N20.1 Calculus of ureter (principal); N13.30 Unspecified hydronephrosis; T83.122A Displacement of indwelling ureteral stent, initial encounter; N28.9 Disorder of kidney and ureter, unspecified; N39.0 Urinary tract infection, site not specified; X58.XXXA Exposure to other specified factors, initial encounter
CPT/HCPCS: 36415; 74176; 80053; 81001; 83735; 85025; 87040; 87086; 93005; 94640; 96374; 96375; 99285; J2060; J2185; J2405; J3490; J7030; J7050; J7611; J8597; J9999

== ENCOUNTER 2025-05-02 13:33 | Oncology outpatient (recurring) (ONCR) | payer OTHER, SELFPAY ==
[2025-05-02 14:20] LABS: Basophils # 0.1 10^3/uL (0.0-0.1); Basophils % 0.5 %; Eosinophils # 0.5 10^3/uL (0.0-0.8); Eosinophils % 3.7 %; Hematocrit 34.1 % (37-53); Lymphocytes # 4.6 10^3/uL (0.8-4.8); Lymphocytes % 36.2 %; Mean Corpuscular HGB Conc 31.1 g/dL (30-55); Mean Corpuscular Volume 90.2 fl (82-101); Mean Platelet Volume 9.4 fL (7.4-10.4); Monocytes # 0.9 10^3/uL (0.2-0.9); Monocytes % 6.9 %; Neutrophils % 52.3 %; Nucleated Red Blood Cells % 0 %; Platelet Count 288 10^3/cmm (157-399); Red Blood Count 3.78 10^6/uL (3.85-5.65); White Blood Count 12.81 10^3/uL (3.29-11.43)
[2025-05-02 14:21] LABS: Reticulocyte % 0.9 % (0.5-2.0)
[2025-05-02 15:00] LABS: Alanine Aminotransferase 19 U/L (0-41); Albumin Level 3.7 g/dL (3.5-5.2); Alkaline Phosphatase 101 U/L (40-130); Anion Gap 19.4 (5-19); Aspartate Amino Transferase 18 U/L (0-40); Blood Urea Nitrogen 38 mg/dL (8-23); Calcium 8.3 mg/dL (8.5-10.5); Carbon Dioxide 18 mmol/L (22-29); Chloride 110 mmol/L (98-107); Ferritin 136 ng/mL (30-400); Globulin 3.4 g/dL (1.3-4.6); Glucose 84 mg/dL (65-115); Iron 73 ug/dL (59-158); Lactate Dehydrogenase 152 U/L (135-225); Osmolality Calculated 302 mOsm/kg (285-295); Percent Saturation 34.9 % (20-50); Potassium 5.4 mmol/L (3.5-5.1); Sodium 142 mmol/L (136-145); Total Bilirubin 0.2 mg/dL (0.15-1.2); Total Iron Binding Capacity 209 mcg/dl; Total Protein 7.1 g/dL (6.6-8.7); Unsaturated Iron Binding 136 ug/dL (112-347); Vitamin B12 423 pg/mL (232-1245)
[2025-05-02 15:17] LABS: Folate Level > 20.0 ng/mL (4.5-32.2)
[2025-05-02 15:42] LABS: Carcinoembryonic Antigen 1.7 ng/mL (0.0-4.7)
[2025-05-04 15:05] LABS: Erythropoietin 7.7 mIU/mL (2.6-18.5)
== END 2025-05-09 23:59 | disposition home or self-care (01) ==
PROVIDERS: Visit Provider Internal Medicine
DX: D64.9 Anemia, unspecified (principal); R31.29 Other microscopic hematuria; R97.8 Other abnormal tumor markers; K86.89 Other specified diseases of pancreas
CPT/HCPCS: 36415; 80053; 82378; 82607; 82668; 82728; 82746; 83540; 83550; 83615; 85025; 85045; 86301; 86880; 99204

== ENCOUNTER 2025-05-25 14:29 | Oncology outpatient (recurring) (ONCR) | payer OTHER, SELFPAY ==
--- NOTE | 2025-05-23 11:00 | MR_ITS ---
WS: [id number] MRI ABDOMEN WITHOUT CONTRAST. COMPARISON: CT 10/20/2024 and 03/09/2025 Multiplanar, multisequence imaging is performed without contrast. History: Evaluate pancreas. Cystic focus in the pancreatic head described on 10/20/2024. Additional mass in the pancreatic tail described on 03/09/2025 Pancreas is normal size. No cyst identified in the pancreatic head. No pancreatic duct dilatation. There is a mass of variable signal along the posterior pancreatic tail measuring 10 x 14 mm. Without IV contrast this cannot be further evaluated. This mass is closely associated with the splenic artery a nd could potentially be an aneurysm. The remaining pancreas is normal. No pancreatitis. No fluid collections. Normal size liver. Normal size spleen. Normal gallbladder with mild contraction. Bilateral perinephric stranding. There is very slight dilatation of the RIGHT renal pelvis. No hydronephrosis. RIGHT ureteral stent noted on 03/09/2025 no longer appears to be present. No significant hydronephrosis. Very slight prominence of the RIGHT renal pelvis. No ascites or adenopathy. MR/MR abdomen wo con [id number] IMPRESSION: 1. No cyst in the pancreatic head. 2. Heterogeneous signal mass in the pancreatic tail measures 10 x 14 mm. This cannot be further evaluated without IV contrast. Benign or neoplastic pancreati c mass. Potentially could represent a splenic artery aneurysm also. If patient is unable to have IV contrast for CT or MRI evaluation consider PET/CT imaging. 3. Mild bilateral perinephric stranding. No high-grade stenosis.
== END 2025-06-09 23:59 | disposition home or self-care (01) ==
PROVIDERS: Visit Provider Internal Medicine
DX: K86.89 Other specified diseases of pancreas (principal); D64.9 Anemia, unspecified; N18.9 Chronic kidney disease, unspecified; D72.829 Elevated white blood cell count, unspecified; I10 Essential (primary) hypertension; E78.5 Hyperlipidemia, unspecified; N20.0 Calculus of kidney
CPT/HCPCS: 74181; 99213

== ENCOUNTER 2025-07-29 11:34 | Outpatient (CLI) | payer OTHER, SELFPAY ==
--- NOTE | 2025-07-29 12:16 | MR_ITS ---
WS: [id number] MRI HEAD WITH CONTRAST WITH ATTENTION TO THE INTERNAL AUDITORY CANALS TECHNIQUE: Sagittal T1, T2 axial, T2 axial flair, axial susceptibility weighted imaging, axial diffusion weighted images, and coronal T2 images were obtained. Pre and post T1 axial and post T1 coronal images. ADC and FSPGR images. Post gadolinium images with attention to the internal auditory canals. Axial fiesta imaging. CLINICAL INFORMATION: asymetrical hearing loss COMPARISON: None. FINDINGS: Proximal seventh and eighth cranial nerves are normal in appearance. Normal trigeminal nerve root entry zones. No evidence of enhancing IAC or CP angle mass. Maxillary sinusitis with air-fluid levels in the maxillary sinuses. Mastoid air cells are well aerated. Moderate small vessel changes. Moderate p arenchymal volume loss. No hemosiderin. No restricted diffusion to suggest acute ischemia. 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 No other acute findings. MR/MR iac's wo/w con* [id number] IMPRESSION: 1. Proximal seventh and eighth cranial nerves are normal in appearance. No maykel dence of enhancing IAC or CP angle mass. 2. No evidence of restricted diffusion to suggest acute ischemia. 3. No hemosiderin. 4. Moderate small vessel changes with moderate parenchymal volume loss. 5. Maxillary sinusitis with air-fluid levels.
[2025-07-29] MEDS: gadobenate dimeglumine 20 mL vial IV (13:01)
== END 2025-07-29 11:35 | disposition home or self-care (01) ==
LOC: RAD 11:35
PROVIDERS: Visit Provider Nurse Practitioner Family
DX: H90.3 Sensorineural hearing loss, bilateral (principal); I67.89 Other cerebrovascular disease; J01.00 Acute maxillary sinusitis, unspecified
CPT/HCPCS: 70553

== ENCOUNTER 2025-08-15 11:15 | Outpatient (CLI) | payer OTHER, SELFPAY ==
[2025-08-15 12:06] LABS: Hematocrit 39.3 % (37-53); Hemoglobin 12.40 g/dL (11.27-16.99); Mean Corpuscular HGB Conc 31.6 g/dL (30-55); Mean Corpuscular Hemoglobin 28.7 pg (27-33); Mean Corpuscular Volume 91.0 fl (82-101); Nucleated Red Blood Cells % 0 %; Platelet Count 260 10^3/cmm (157-399); Red Blood Count 4.32 10^6/uL (3.85-5.65); White Blood Count 12.48 10^3/uL (3.29-11.43)
[2025-08-15 12:25] LABS: Creatinine Urine, Random 87 mg/dL (39-259)
[2025-08-15 12:41] LABS: Calcium 8.8 mg/dL (8.5-10.5)
[2025-08-15 12:45] LABS: Microalbum Creatinine Ratio Ur 264 mg/dL (0-20)
[2025-08-15 12:52] LABS: Albumin Level 3.9 g/dL (3.5-5.2); Anion Gap 17.9 (5-19); Blood Urea Nitrogen 32 mg/dL (8-23); Calcium 8.8 mg/dL (8.5-10.5); Carbon Dioxide 22 mmol/L (22-29); Chloride 107 mmol/L (98-107); Glucose 119 mg/dL (65-115); Potassium 4.9 mmol/L (3.5-5.1); Sodium 142 mmol/L (136-145)
== END 2025-08-15 11:16 | disposition home or self-care (01) ==
LOC: LAB 11:17
PROVIDERS: Visit Provider Internal Medicine Nephrology
DX: N18.32 Chronic kidney disease, stage 3b (principal)
CPT/HCPCS: 36415; 80069; 82044; 82306; 82310; 83970; 85025

== ENCOUNTER 2025-09-28 12:19 | Oncology outpatient (recurring) (ONCR) | payer OTHER, SELFPAY ==
[2025-09-28 13:55] LABS: Hematocrit 42.4 % (37-53); Hemoglobin 13.00 g/dL (11.27-16.99); Mean Corpuscular HGB Conc 30.7 g/dL (30-55); Mean Corpuscular Hemoglobin 28.3 pg (27-33); Mean Corpuscular Volume 92.4 fl (82-101); Nucleated Red Blood Cells % 0 %; Platelet Count 256 10^3/cmm (157-399); Red Blood Count 4.59 10^6/uL (3.85-5.65); White Blood Count 10.47 10^3/uL (3.29-11.43)
[2025-09-28 14:12] LABS: Alanine Aminotransferase 24 U/L (0-41); Albumin Level 4.1 g/dL (3.5-5.2); Alkaline Phosphatase 111 U/L (40-130); Anion Gap 17.6 (5-19); Aspartate Amino Transferase 16 U/L (0-40); Blood Urea Nitrogen 37 mg/dL (8-23); Calcium 8.8 mg/dL (8.5-10.5); Carbon Dioxide 24 mmol/L (22-29); Chloride 108 mmol/L (98-107); Ferritin 64 ng/mL (30-400); Globulin 3.5 g/dL (1.3-4.6); Glucose 147 mg/dL (65-115); Iron 135 ug/dL (59-158); Osmolality Calculated 309 mOsm/kg (285-295); Potassium 5.6 mmol/L (3.5-5.1); Sodium 144 mmol/L (136-145); Total Iron Binding Capacity 279 mcg/dl; Total Protein 7.6 g/dL (6.6-8.7); Unsaturated Iron Binding 144 ug/dL (112-347)
[2025-09-30 09:54] LABS: Leukemia Profile (BBPL) See Report
== END 2025-10-09 23:59 | disposition home or self-care (01) ==
LOC: ONCMED 12:20
PROVIDERS: Visit Provider Internal Medicine
DX: K86.89 Other specified diseases of pancreas (principal); R31.29 Other microscopic hematuria; D64.9 Anemia, unspecified; R03.0 Elevated blood-pressure reading, without diagnosis of hypertension; N28.89 Other specified disorders of kidney and ureter
CPT/HCPCS: 36415; 80053; 82668; 82728; 82746; 83010; 83540; 83550; 83615; 85025; 85045; 86880; 88184; 88185; 99214